=== PATIENT | male | born 1975 | race African-American/Black ===

== ENCOUNTER 2019-08-10 20:40 | Emergency (ER) | payer OTHER ==
[2019-08-10 20:55] VITALS: BP 128/86; PULSE 64; TEMP 98; BMI 22.3
[2019-08-10] MEDS ORDERED: KETOROLAC TROMETHAMINE 60 MG/2 ML VIAL IM ONE (22:10)
[2019-08-10] MEDS ORDERED: IBUPROFEN 400 MG TABLET (FP) PO ONE ×2 (22:15)
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
[2019-08-10] MEDS ORDERED: KETOROLAC TROMETHAMINE 30 MG/1 ML VIAL IM ONE (23:22)
[2019-08-10] MEDS ORDERED: KETOROLAC TROMETHAMINE 30 MG/1 ML VIAL ONE (23:22)
== END 2019-08-10 23:27 | disposition home or self-care (01) ==
LOC: JERFT 20:40
PROC: 3E0233Z Introduction of Anti-inflammatory into Muscle, Percutaneous Approach (ICD-10-PCS; principal; 2019-08-10)
DX: S13.4XXA Sprain of ligaments of cervical spine, initial encounter (principal); S39.012A Strain of muscle, fascia and tendon of lower back, initial encounter; V43.52XA Car driver injured in collision with other type car in traffic accident, initial encounter; Y92.412 Parkway as the place of occurrence of the external cause; Y93.89 Activity, other specified; Y99.8 Other external cause status
CPT/HCPCS: 71046-TC-FY; 72050-TC-FY; 72100-TC-FY; 99281-25